=== PATIENT | male | born 1985 | race Two or more races ===

== ENCOUNTER 2019-07-10 21:16 | Emergency (ER) | payer SELFPAY ==
[2019-07-10] MEDS ORDERED: IBUPROFEN 800 MG TABLET PO ONE (21:36)
--- NOTE | 2019-07-10 22:15 | RADIOLOGY REPORT (SQ) ---
XR ANKLE 3 OR MORE VIEWS CLINICAL STATEMENT: pain and swelling COMPARISON: None FINDINGS: Bony alignment is anatomic. There is no fracture or dislocation. Ankle mortise is not widened. No diffuse soft tissue swelling. IMPRESSION: No fracture.
[2019-07-10] MEDS ORDERED: HYDROCODONE/ACETAMINOPHEN 5-325 MG (6 TAB/ER DISP) PO PRN (22:17)
--- NOTE | 2019-07-10 22:19 | ER Document Report ---
HPI - HPI Patient complains to provider of: Right ankle injury Time Seen by Provider: 07/10/19 22:06 Onset: This afternoon Onset/Duration: Sudden Quality of pain: Achy Pain Level: 4 Context: Patient states he was walking and missed a step and rolling his right ankle. Patient with right ankle pain and swelling. Patient denies any other injury. Exacerbated by: Standing, Movement, Walking Relieved by: Denies Similar symptoms previously: No Recently seen / treated by doctor: No - ROS ROS below otherwise negative: Yes Systems Reviewed and Negative: Yes All other systems reviewed and negative - GASTROINTESTINAL Gastrointestinal: DENIES: Nausea, Patient vomiting - MUSCULOSKELETAL Musculoskeletal: REPORTS: Extremity pain, Swelling - DERM Skin Color: Normal Skin Problems: None Past Medical History - General Information source: Patient - Social History Smoking Status: Never Smoker Frequency of alcohol use: Occasional Drug Abuse: None Occupation: [employer] Family History: Reviewed & Not Pertinent Patient has suicidal ideation: No Patient has homicidal ideation: No - Medical History Medical History: Negative Renal/ Medical History: Denies: Hx Peritoneal Dialysis Surgical Hx: Negative Vertical Provider Document - CONSTITUTIONAL Agree With Documented VS: Yes Exam Limitations: No Limitations General Appearance: WD/WN, No Apparent Distress - HEENT HEENT: Atraumatic, Normocephalic - NECK Neck: Normal Inspection, Supple - RESPIRATORY Respiratory: Breath Sounds Normal, No Respiratory Distress - CARDIOVASCULAR Cardiovascular: Regular Rate, Regular Rhythm, No Murmur Pulses: Normal: Dorsalis pedis - BACK Back: Normal Inspection - MUSCULOSKELETAL/EXTREMETIES Musculoskeletal/Extremeties: MAEW, FROM, Tender - Right ankle tenderness over lateral malleolar area with 2+ edema, no deformity, Edema. negative: Eccymosis - NEURO Level of Consciousness: Awake, Alert, Appropriate Motor/Sensory: No Motor Deficit - DERM Integumentary: Warm, Dry, No Rash Course - Vital Signs Vital signs: Temp Pulse Resp BP Pulse Ox 98.0 F 83 18 128/85 H 100 07/10/19 21:32 07/10/19 21:32 07/10/19 21:32 07/10/19 21:32 07/10/19 21:32 - Diagnostic Test Radiology reviewed: Image reviewed, Reports reviewed Procedures - Immobilization Right Ankle Pre-Proc Neuro Vasc Exam: Normal Immobilizer type: Ankle stirrup Performed by: PCT Post-Proc Neuro Vasc Exam: Normal Alignment checked and good: Yes Discharge - Discharge Clinical Impression: Right ankle sprain Qualifiers: Encounter type: initial encounter Involved ligament of ankle: unspecified ligament Qualified Code(s): S93.401A - Sprain of unspecified ligament of right ankle, initial encounter Condition: Stable Disposition: HOME, SELF-CARE Instructions: Ankle Stirrup Splint ([facility]), Use of Crutches ([facility]), Ice Packs ([facility]), Oral Narcotic Medication ([facility]), Sprained Ankle ([facility]) Additional Instructions: Return immediately for any new or worsening symptoms Followup with your primary care provider, call tomorrow to make a followup appointment Follow-up with orthopedics for any persistent pain or problems Weightbearing as tolerated Prescriptions: Naproxen [Naprosyn 250 Nmg Tablet] 1 tab PO BID #14 tablet Forms: Return to Work Referrals: [facility] [Provider Group] - Follow up as needed MARII CRUMP JR, DO [ACTIVE PROVISIONAL STAFF] - Follow up as needed
[2019-07-10 22:50] VITALS: BP 131/82
== END 2019-07-10 22:49 | disposition home or self-care (01) ==
LOC: ER 21:16
PROC: 2W3QX1Z Immobilization of Right Lower Leg using Splint (ICD-10-PCS; principal; 2019-07-10)
DX: S93.401A Sprain of unspecified ligament of right ankle, initial encounter (principal); M25.571 Pain in right ankle and joints of right foot; M79.89 Other specified soft tissue disorders; X50.1XXA Overexertion from prolonged static or awkward postures, initial encounter
CPT/HCPCS: 99283; 73610; 29515; L1902

== ENCOUNTER 2020-07-21 19:54 | Emergency (ER) | payer SELFPAY ==
--- NOTE | 2020-07-21 20:35 | ER Document Report ---
ED General - General Chief Complaint: Shoulder Pain Stated Complaint: RIGHT SHOULDER PAIN Time Seen by Provider: 07/21/20 20:23 Primary Care Provider: [facility] [Provider Group] - Follow up as needed [facility] [Outside] - Follow up as needed LAUREN SEVERINO MD [COMMUNITY BASED STAFF] - Follow up as needed Mode of Arrival: Ambulatory Information source: Patient Notes: Patient is an otherwise healthy 35-year-old male presents the emergency depar tment with concerns for chest pain and palpitations. Patient reports he drank an energy drink about 4 hours ago. He states within 30 minutes he started having palpitations and right-sided chest pain that radiated up into his right shoulder. He states he went home trying to lay down but continued to have pain. He went to the gas station and bought a BC powder, took it and then realized that also had caffeine in it so he tried to vomit it up. Patient states he got very scared so he decided to come to the emergency department. He states all of his symptoms have now resolved. He has been chest pain-free for at least 45 minutes. He does not feel like he has any palpitations. He does report that he recently started drinking energy drinks about 2 weeks ago, he has 1 every other day. He is a non-smoker and his only other medical history is a cholecystectomy. TRAVEL OUTSIDE OF THE [place] IN LAST 30 DAYS: No - Related Data Allergies/Adverse Reactions: No Known Allergies Allergy (Verified 07/10/19 21:36) Past Medical History - General Information source: Patient - Social History Smoking Status: Never Smoker Frequency of alcohol use: None Drug Abuse: None Family History: Reviewed & Not Pertinent - Medical History Medical History: Negative Renal/ Medical History: Denies: Hx Peritoneal Dialysis Past Surgical History: Reports: Hx Cholecystectomy - Immunizations Immunizations up to date: Yes Review of Systems - Review of Systems Constitutional: No symptoms reported EENT: No symptoms reported Cardiovascular: Chest pain, Palpitations Respiratory: No symptoms reported Gastrointestinal: No symptoms reported Genitourinary: No symptoms reported Male Genitourinary: No symptoms reported Musculoskeletal: No symptoms reported Skin: No symptoms reported Hematologic/Lymphatic: No symptoms reported Neurological/Psychological: No symptoms reported Physical Exam - Vital signs Vitals: Temp Pulse Resp BP Pulse Ox 98.9 F 95 17 162/90 H 95 07/21/20 20:20 07/21/20 20:20 07/21/20 20:20 07/21/20 20:20 07/21/20 20:20 - Notes Notes: PHYSICAL EXAMINATION: GENERAL: Well-appearing, well-nourished and in no acute distress. HEAD: Atraumatic, normocephalic. EYES: Pupils equal round and reactive to light, extraocular movements intact, sclera anicteric, conjunctiva are normal. ENT: Nares patent, oropharynx clear without exudates. Moist mucous membranes. NECK: Normal range of motion, supple without lymphadenopathy LUNGS: Breath sounds clear to auscultation bilaterally and equal. No wheezes rales or rhonchi. HEART: Regular rate and rhythm without murmurs ABDOMEN: Soft, nontender, nondistended abdomen. No guarding, no rebound. No masses appreciated. Musculoskeletal: Normal range of motion, no pitting or edema. No cyanosis. NEUROLOGICAL: Cranial nerves grossly intact. Normal speech, normal gait. Normal sensory, motor exams PSYCH: Normal mood, normal affect. SKIN: Warm, Dry, normal turgor, no rashes or lesions noted. Course - Re-evaluation Re-evalutation: Patient's work-up today has been reassuring. He has had negative troponin. Initial EKG showed right bundle branch block, rate 76, QTc 441. This was reviewed by Dr. Barajas. She did feel that the EKG was abnormal. We repeated a troponin and also repeated an EKG, this was also the same, no acute change. Patient has been chest pain-free since arrival to the emergency department. He did have slightly elevated liver enzymes. He does not drink any alcohol. I encouraged him to follow-up with his primary care provider regarding his elevated liver enzymes. - Vital Signs Vital signs: Temp Pulse Resp BP Pulse Ox 98.8 F 76 20 133/98 H 96 07/21/20 23:46 07/21/20 23:46 07/21/20 23:46 07/21/20 23:46 07/21/20 23:46 - Laboratory Result Diagrams: 07/21/20 20:41 07/21/20 20:41 Laboratory results interpreted by me: 07/21/20 20:41 Glucose 122 H AST 77 H ALT 181 H - Diagnostic Test Radiology reviewed: Image reviewed, Reports reviewed - EKG Interpretation by Me EKG shows normal: Sinus rhythm - Rate 76, QTc 441 Rate: Normal [place]/QRS: RBBB Discharge - Discharge Clinical Impression: Elevated liver enzymes Chest pain Qualifiers: Chest pain type: unspecified Qualified Code(s): R07.9 - Chest pain, unspecified Disposition: HOME, SELF-CARE Additional Instructions: Your work-up today was reassuring. I think your chest pain and palpitations were likely from the energy drink that you had. Incidentally we did find that your liver enzymes are slightly elevated. I would follow-up with a primary care provider to have these redrawn. I have given you a list of primary care providers in the area. Return to the emergency department for new or worsening symptoms. Referrals: LAUREN SEVERINO MD [COMMUNITY BASED STAFF] - Follow up as needed [facility] [Outside] - Follow up as needed [facility] [Provider Group] - Follow up as needed
[2020-07-21 20:56] LABS: ABSOLUTE BASOPHILS # (AUTO) 0.1 10^3/uL (0.0-0.2); ABSOLUTE EOSINOPHILS # (AUTO) 0.2 10^3/uL (0.0-0.6); ABSOLUTE LYMPHOCYTES (AUTO) 1.7 10^3/uL (0.5-4.7); ABSOLUTE MONOCYTES (AUTO) 0.8 10^3/uL (0.1-1.4); ABSOLUTE NEUT (AUTO) 5.8 10^3/uL (1.7-8.2); BASOPHILS % (AUTO) 0.7 % (0-2); EOSINOPHILS % (AUTO) 2.3 % (0-6); HEMATOCRIT 42.3 % (37.9-51.0); MEAN CORPUSCULAR HEMOGLOBIN 31.5 pg (27.0-33.4); MEAN CORPUSCULAR HGB CONC 35.5 g/dL (32.0-36.0); MEAN CORPUSCULAR VOLUME 89 fl (80-97); MONOCYTES % (AUTO) 9.1 % (3-13); PLATELET COUNT 194 10^3/uL (150-450); RED BLOOD COUNT 4.77 10^6/uL (4.35-5.55); RED CELL DISTRIBUTION WIDTH 12.5 % (11.5-14.0); SEGMENTED NEUTROPHILS % (AUTO) 67.9 % (42-78); TOTAL CELLS COUNTED % (AUTO) 100 %; WHITE BLOOD COUNT 8.6 10^3/uL (4.0-10.5)
[2020-07-21 21:09] LABS: ALBUMIN 4.4 g/dL (3.5-5.0); ALKALINE PHOSPHATASE 114 U/L (38-126); ANION GAP 10 (5-19); ASPARTATE AMINO TRANSFERASE 77 U/L (17-59); BILIRUBIN,DIRECT 0.3 mg/dL (0.0-0.4); BILIRUBIN,TOTAL 0.7 mg/dL (0.2-1.3); BLOOD UREA NITROGEN 10 mg/dL (7-20); CALCIUM 9.3 mg/dL (8.4-10.2); CARBON DIOXIDE 28 mmol/L (22-30); CHLORIDE 103 mmol/L (98-107); GLUCOSE 122 mg/dL (75-110); POTASSIUM 3.8 mmol/L (3.6-5.0); TOTAL PROTEIN 7.5 g/dL (6.3-8.2)
--- NOTE | 2020-07-21 21:20 | RADIOLOGY REPORT (SQ) ---
EXAM DESCRIPTION: X-ray, single view of the chest CLINICAL HISTORY: 35 years Male, chest pain COMPARISON: None. FINDINGS: Lungs: Lungs are clear. No pneumonia or edema. No pneumothorax or pleural effusion. Mediastinum: Cardiac and mediastinal silhouette are normal. Bones: Osseous structures are normal. IMPRESSION: Unremarkable single view of the chest. No acute process.
[2020-07-21 23:54] VITALS: BP 133/98
--- NOTE | 2020-07-22 06:38 | EKG REPORT ---
SEVERITY:- ABNORMAL ECG - SINUS RHYTHM INCOMPLETE RIGHT BUNDLE BRANCH BLOCK : Confirmed by: Pal Braga MD 22-Jul-2020 06:37:21
--- NOTE | 2020-07-22 06:42 | EKG REPORT ---
SEVERITY:- ABNORMAL ECG - SINUS RHYTHM RIGHT VENT HYPERTROPHY : Confirmed by: Pal Braga MD 22-Jul-2020 06:42:03
== END 2020-07-21 23:51 | disposition home or self-care (01) ==
LOC: ER 19:54
DX: R07.9 Chest pain, unspecified (principal); M25.511 Pain in right shoulder; R00.2 Palpitations
CPT/HCPCS: 36415; 71045; 80053; 84484; 85025; 85379; 93005; 93010; 99285

== ENCOUNTER 2020-07-30 16:38 | Emergency (ER) | payer SELFPAY | END 2020-07-30 17:26 | disposition left against medical advice (07) | LOC: ER 16:38 | DX: Z53.21 Procedure and treatment not carried out due to patient leaving prior to being seen by health care provider (principal) ==